=== PATIENT | female | born 1995 | race Caucasian/White ===

== ENCOUNTER 2017-05-23 10:39 | Emergency (ER) | payer MEDICAID, SELFPAY ==
[2017-05-23] MEDS ORDERED: Lidocaine 1% w/Epinephrine 1:100K 20 ML VIAL ONE (11:52)
== END 2017-05-23 12:26 | disposition home or self-care (01) ==
LOC: ERS 10:39
DX: L02.415 Cutaneous abscess of right lower limb (principal); Z79.899 Other long term (current) drug therapy
CPT/HCPCS: 10060; J2001

== ENCOUNTER 2018-03-13 21:13 | Emergency (ER) | payer OTHER | END 2018-03-13 21:47 | disposition home or self-care (01) | LOC: ERS 21:13 | DX: O99.511 Diseases of the respiratory system complicating pregnancy, first trimester (principal); J20.9 Acute bronchitis, unspecified; O99.341 Other mental disorders complicating pregnancy, first trimester; F41.9 Anxiety disorder, unspecified; F32.9 Major depressive disorder, single episode, unspecified; Z3A.12 12 weeks gestation of pregnancy | CPT/HCPCS: 87081; 87430; 99283 ==

== ENCOUNTER 2018-05-15 14:39 | Emergency (ER) | payer OTHER ==
[2018-05-15] MEDS ORDERED: Acetaminophen 500 MG TAB ONE (15:49)
== END 2018-05-15 16:02 | disposition home or self-care (01) ==
LOC: ERS 14:39
DX: O99.512 Diseases of the respiratory system complicating pregnancy, second trimester (principal); J11.1 Influenza due to unidentified influenza virus with other respiratory manifestations; O99.332 Smoking (tobacco) complicating pregnancy, second trimester; F41.9 Anxiety disorder, unspecified; F32.9 Major depressive disorder, single episode, unspecified; Z3A.19 19 weeks gestation of pregnancy
CPT/HCPCS: 87804; 99283

== ENCOUNTER 2018-05-24 14:31 | Outpatient (CLI) | payer OTHER ==
--- NOTE | 2018-05-24 15:55 | ULT ---
OBSTETRIC SONOGRAM 05/24/18 HISTORY: evaluation. Size and dates. FINDINGS: Multiple transabdominal sonographic views of the gravid uterus shows a single intrauterine gestation in cephalic presentation. Cervical is closed and 3.2 cm. Grade 0 placenta is anterior. Amniotic fluid is within normal limits. No gross intracranial abnormalities are apparent. Four chamber heart shows motion at 150 beats per minute. Three vessel cord shows a normal insertion. spine and kidneys a re intact as visualized. Measurements are as follows: Biparietal diameter 21 weeks, 2 days Head circumference 21 weeks, 0 days Abdominal circumference 20 weeks, 2 days Femur length 21 weeks, 0 days Estimated date of delivery based on today's sonogram 10/06/2018. Hadlock 23 percentile. IMPRESSION: Single viable intrauterine gestation with estimated gestational age based on today's sonogram of 20 w eeks, 5 days. POS: [facility]
== END 2018-05-24 14:32 | disposition home or self-care (01) ==
LOC: ULT 14:31
PROVIDERS: ATTEND Family Medicine
DX: Z34.92 Encounter for supervision of normal pregnancy, unspecified, second trimester (principal); Z3A.20 20 weeks gestation of pregnancy
CPT/HCPCS: 76805

== ENCOUNTER 2018-08-27 11:38 | Day surgery (SDC) | payer OTHER ==
[2018-08-27 12:28] VITALS: BMI 23.6
[2018-08-27 13:33] LABS: Bilirubin Negative (Negative); Blood, Urine Negative (Negative); Clarity CLEAR (Clear); Glucose, Urine (Dipstick) Negative (Negative); Leukocyte Moderate (Negative); Nitrite Negative (Negative); Protein, Urine (Dipstick) Negative (Neg-Trace); Specific Gravity, Urine 1.023 (1.002-1.036)
[2018-08-27 13:38] LABS: Bacteria/HPF Rare-Few HPF (None Seen); Hyaline Casts/LPF 7-10 HYALINE CAST LPF (0-3 Hyaline); Pathc Cast-AUWi Flag 1.49 (0-2.49); RBC/HPF 0-3 HPF (0-3); WBC/HPF 21-50 HPF (0-3)
[2018-08-27 15:17] LABS: Bilirubin Negative (Negative); Blood, Urine Negative (Negative); Clarity CLEAR (Clear); Glucose, Urine (Dipstick) Negative (Negative); Leukocyte Trace (Negative); Nitrite Negative (Negative); Protein, Urine (Dipstick) Negative (Neg-Trace); Specific Gravity, Urine 1.017 (1.002-1.036); pH, Urine 6.5 (5.0-9.0)
[2018-08-27 15:19] LABS: Bacteria/HPF 1+ HPF (None Seen); Hyaline Casts/LPF 0-3 HYALINE CAST LPF (0-3 Hyaline); Pathc Cast-AUWi Flag 0.27 (0-2.49); RBC/HPF 0-3 HPF (0-3); WBC/HPF 0-3 HPF (0-3)
[2018-08-27 15:30] LABS: Renal Epithelial None Seen HPF (0-3); Transitional Epithelial NONE SEEN HPF (0-3)
--- NOTE | 2018-08-30 12:22 | SS ---
DATE OF ADMISSION: 08/27/2018 DATE OF DISCHARGE: 08/27/2018 HISTORY OF PRESENT ILLNESS: The patient is a 23-year-old G2, P1 female with an intrauterine at 34 weeks and 6 days, who is presenting to Labor and Delivery after sudden onset of pelvic and back pain that she said began after having a bowel movement around 6:00 p.m. The patient denies uterine contractions or vaginal bleeding. She does report frequency of urination since this morning. The patient denies any fever, headache, chest pain, shortness of breath, nausea, vomiting, diarrhea, hip problems, knee problems, muscle weakness. The patient reports the pain as sharp. She reports it is worse with activity and movement such as getting out of bed and getting out of car and lifting. PAST MEDICAL HISTORY: Deaf in the left ear, anxiety, and depression. PAST SURGICAL HISTORY: She has had a LEEP procedure in 2018. ALLERGIES: LATEX. MEDICATIONS: vitamins. OB LABS: RPR is nonreactive. Chlamydia not detected. Hepatitis B surface antigen nonreactive. HIV nonreactive in the third trimester. She is rubella immune. Gonorrhea not detected. One-hour Glucola is 131. REVIEW OF SYSTEMS: Per HPI. PHYSICAL EXAMINATION: VITAL SIGNS: Blood pressure 110/74, heart rate of 98, respiratory rate of 20, saturating 96% to 97% on room air, temperature 98.9. GENERAL: She appears to be in no acute distress. She is alert, oriented, cooperative, and pleasant to interact with. HEAD: Normocephalic, atraumatic. LUNGS: Clear to auscultation bilaterally. HEART: Has regular rate and rhythm. ABDOMEN: Gravid, soft. She does have some tenderness to palpation with deviation of the uterus. She has some mild SI joint tenderness on either side to palpation. No CVA tenderness. EXTREMITIES: Nontender, nonedematous. GENITOURINARY: Cervical exam per nursing staff, she is 1, 50, and -3 station. LABORATORY DATA: heart tracing baseline is in the 140s with moderate long-term variability. Positive accelerations. No decelerations. The tocometer showing some irritability. Leukocyte esterase is trace, 1+ bacteria, squamous 4 to 6 on a clean-catch, and also on a cath UA. ASSESSMENT AND PLAN: The patient is a 23-year-old with an intrauterine at 34 weeks and 6 days, who presented with acute onset of sharp abdominal pain after straining to have bowel movement. These pains are most consistent with musculoskeletal pain of . In an attempt to evaluate her urine, we have sent 2 specimens, both have been somewhat contaminated with squamous cells. However, there has been evidence of urinary tract infection with bacteria present and leukocyte esterase. We have called in a prescription of Macrobid for her and will be culturing her urine. The patient had instructions to follow up with her primary OB Dr. Mike Cervantes as scheduled. She has been given labor precautions. Job ID: [id number]
== END 2018-08-27 15:40 | disposition home or self-care (01) ==
LOC: L&D/OP 11:38
PROVIDERS: ATTEND Family Medicine
DX: O99.89 Other specified diseases and conditions complicating pregnancy, childbirth and the puerperium (principal); R10.2 Pelvic and perineal pain; M54.5 Low back pain; H91.8X2 Other specified hearing loss, left ear; O99.343 Other mental disorders complicating pregnancy, third trimester; F41.9 Anxiety disorder, unspecified; F32.9 Major depressive disorder, single episode, unspecified; Z3A.34 34 weeks gestation of pregnancy; Z91.040 Latex allergy status
CPT/HCPCS: 51701; 81001; 99283

== ENCOUNTER 2018-09-17 03:49 | Inpatient (IN) | payer OTHER ==
[2018-09-17 04:20] VITALS: BMI 23.8
--- NOTE | 2018-09-17 05:00 | PDOC.LDHP ---
Labor and Delivery H&P Allergies/Adverse Reactions: Allergies Allergy/AdvReac Type Severity Reaction Status Date / Time Latex, Natural Rubber Allergy Severe Verified 09/17/18 04:15 - Plan -: PCP: Clover Cervantes HPI: This is a 23 yo at 37.5 wks presenting for labor rule out. She states she had intercourse last night and had back contractions which started after that. She states that they were consistently every 2-3 minutes. Now they have spaced out and she cannot give a frequency. She denies bleeding or discharge. Feels baby moving often. Denies FALCON, visual changes, SOB, or swelling. History: OB hx: at term PMH: neg PSH: neg Meds: PNV Soc Hx: denies smoking, alcohol, drugs Fam Hx: denies downs, congenital defects All: Tamiflu REVIEW OF SYSTEMS: Gen: no fever, chills, or sweats Neuro: no numbness/tingling, no weakness, denies headache Eyes: no visual changes ENT: no hearing changes, no sore throat, no runny nose Resp: no cough, no SOB, no wheeze Card: denies chest pain, no palpitations GI: no N/V/D, no abdominal pain : no dysuria, no hematuria MSK: no myalgias, no joint pain/stiffness Heme: no easy bruising/bleeding Skin: no rash, no erythema PHYSICAL EXAMINATION: General: NAD, alert and oriented x3 HEENT: PERRLA, EOMI, normal sclera, oropharynx without erythema or exudate Neck: Supple. Full ROM. Heart/Cardiovascular System: RRR, Cap refill < 3 seconds, no rub, no murmur Lungs/Respiratory System: clear to auscultation bilaterally. No increased work of breathing. Room air. Abdomen/Gastro-Intestinal System: no abdominal tenderness, normal bowel sounds, Gravid Extremities: Warm extremities. No cyanosis or edema. Neuro: No gross deficits appreciated. CN 2-12 grossly intact Psychiatry: Awake, Alert and cooperative with exam Skin: No lesions, rashes, or ulcers Musculoskeletal: Full ROM A/P: This is a 23 yo at 37.5 wks presenting for labor rule out # Term in labor - /-3 - /-1 - cxns q4-5 min, accels, no decels - will admit to monitor progress - reaching out to PCP to assist with obtaining records Addendum - Attending - Attending Attestation Date/Time: 09/19/18 0701 I personally evaluated the patient and discussed the management with Dr. Guzman I agree with the History, Examination, Assessment and Plan documented above with any addition or exceptions noted below. Pt admitted for labor. Dr Cervantes will be managing
[2018-09-17] MEDS ORDERED: Promethazine HCl 25 MG/ML VIAL IM PRN ×2 (07:53→11:51)
[2018-09-17] MEDS ORDERED: Ondansetron PF 4 MG/2 ML Vial IVP PRN ×4 (07:53→18:43)
[2018-09-17] MEDS ORDERED: NS / Oxytocin 40 units/1000ml 1,000 ML IV PRN (07:53)
[2018-09-17] MEDS ORDERED: Lidocaine 1% (PF) 30 ML VIAL SC PRN (07:53)
[2018-09-17] MEDS: Lactated Ringer's 1,000 ML IV SCH ×3 (07:55→13:41)
[2018-09-17 08:26] LABS: Hemoglobin 11.7 g/dL (12.0-16.0); Mean Corpuscular Hemoglobin 30.3 pg (27.0-31.0); Mean Corpuscular Volume 86.6 fL (78.0-98.0); Mean Platelet Volume 8.3 fL (7.4-10.4); Platelet Count 242 thou/uL (130-400); Red Blood Cell (RBC) Count 3.86 mill/uL (4.20-5.40); White Blood Cell (WBC) Count 8.6 thou/uL (4.8-10.8)
[2018-09-17] MEDS ORDERED: Fentanyl 4 mcg/Bup 0.1% Cadd 100 ML ONE ×2 (08:39→15:24)
[2018-09-17 09:08] LABS: Syphilis Antibody Nonreactive (Nonreactive); Syphilis Antibody Index 0.04 S/CO (<1.00 Non-Reactive)
[2018-09-17 09:09] LABS: HBSAg Index 0.28 S/CO (0-0.99); Hep B Surf Ag Non-Reactive S/CO (NonReactive)
[2018-09-17] MEDS ORDERED: Bupivacaine 0.25% HCL 30 ML VIAL ONE (11:11)
[2018-09-17] MEDS ORDERED: Naloxone HCl 0.4 mg/ml Vial IVP PRN ×2 (11:51)
[2018-09-17] MEDS ORDERED: Lactated Ringer's 500 ML IV PRN (11:51)
[2018-09-17] MEDS ORDERED: diphenhydrAMINE 50 MG/ML VIAL IVP PRN (11:51)
[2018-09-17] MEDS ORDERED: Acetaminophen 325 MG TAB PO PRN (11:51)
[2018-09-17] MEDS ORDERED: ePHEDrine/0.9% NaCl/PF SYRINGE 50 mg/10 ml SLOW IVP PRN (11:51)
[2018-09-17] MEDS ORDERED: NS w/ Oxytocin 10 units 500 ML ONE (11:57)
[2018-09-17] MEDS ORDERED: Fentanyl 4 mcg/Bupivacaine 0.1% Cassette 100 ML EPIDURAL SCH (12:00)
[2018-09-17] MEDS ORDERED: Communication Order-Pharmacy FS SCH (12:00)
[2018-09-17] MEDS ORDERED: NS w/ Oxytocin 10 units 500 ML IVPB SCH (13:00)
[2018-09-17] MEDS ORDERED: diphenhydrAMINE 25 MG CAP PO PRN ×2 (16:29→18:43)
[2018-09-17] MEDS ORDERED: Bisacodyl 10 MG SUPP PR PRN ×2 (16:29→18:43)
[2018-09-17] MEDS ORDERED: Lanolin Ointment 7 GM TUBE TOP PRN ×2 (16:29→18:43)
[2018-09-17] MEDS ORDERED: HYDROcodone/Acetaminophen 5/325 mg Tablet PO PRN (16:29)
[2018-09-17] MEDS ORDERED: Misoprostol 200 MCG TAB VAG PRN (16:29)
[2018-09-17] MEDS ORDERED: Milk Of Magnesia 30 ML UDCUP PO PRN ×2 (16:29→18:43)
[2018-09-17] MEDS ORDERED: Adacel (T-DAP) 0.5 ML SYRINGE IM ONE (16:29)
[2018-09-17] MEDS ORDERED: NS / Oxytocin 40 units/1000ml 1,000 ML IV SCH ×2 (16:30→18:43)
--- NOTE | 2018-09-17 16:36 | HP ---
HISTORY OF PRESENT ILLNESS: This is a 23-year-old white female, G4, P1, at 37 weeks and 5 days with EDC of 10/03/2018. The patient's course has been uncomplicated. She has been having contractions for the past few days. She presented this morning with regular contractions and was noted to be 4 cm dilated. She was therefore admitted. PAST MEDICAL HISTORY: Left ear congenital deafness. PAST SURGICAL HISTORY: In September 2017, spontaneous vaginal delivery x1, spontaneous AB x1, elective AB x1. FAMILY HISTORY: Mother with drug addiction. Maternal grandfather with lung cancer. Paternal grandfather with renal cell cancer. Paternal grandmother with hypertension and colon cancer. Siblings with asthma and seizure disorder. SOCIAL HISTORY: She is . She has one child. Lives with her and child. Graduated from high school. She does not smoke and does not drink. REVIEW OF SYSTEMS: As above. PHYSICAL EXAMINATION: VITAL SIGNS: Stable. Afebrile. HEART: Regular rate and rhythm. LUNGS: Clear. ABDOMEN: Gravid. heart tones reactive, category I. Cervix 4 cm from the morning check. EXTREMITIES: With no edema. LABORATORY DATA: One-hour GCT 131. Thyroid normal. HIV negative. Hepatitis B negative. RPR negative. Rubella immune. AB positive blood type. Paps are normal. GC and Chlamydia negative. HPV negative. ASSESSMENT: 1. Term . 2. Active labor. PLAN: 1. Routine L and D orders. 2. Epidural. 3. Plan to [facility]OM and continue to follow. Job ID: [id number]
[2018-09-17] MEDS ORDERED: Ferrous Sulfate 325 MG TAB PO SCH (17:00)
[2018-09-17] MEDS ORDERED: Methylergonovine 0.2 MG/ML VIAL IM PRN (18:43)
[2018-09-17] MEDS: HYDROcodone/Acetaminophen 5/325 mg Tablet PO PRN (19:14)
[2018-09-17] MEDS: Docusate Calcium (SURFAK) 240 MG CAP PO SCH (20:06)
[2018-09-17] MEDS: Ibuprofen 800 MG TAB PO PRN (20:06)
[2018-09-17] MEDS ORDERED: Docusate Calcium (SURFAK) 240 MG CAP PO SCH (21:00)
[2018-09-17] MEDS: Zolpidem Tartrate 5 MG TAB PO PRN (22:08)
[2018-09-18] MEDS: Ibuprofen 800 MG TAB PO PRN ×3 (07:49→21:15)
[2018-09-18] MEDS: Docusate Calcium (SURFAK) 240 MG CAP PO SCH ×2 (07:49→21:16)
[2018-09-18] MEDS: Prenatal Vitamin 1 TAB PO SCH (07:49)
[2018-09-18 08:55] LABS: Hemoglobin 10.6 g/dL (12.0-16.0); Mean Corpuscular HGB CONC 34.3 g/dL (32.0-36.0); Mean Corpuscular Hemoglobin 29.8 pg (27.0-31.0); Mean Corpuscular Volume 86.8 fL (78.0-98.0); Mean Platelet Volume 8.4 fL (7.4-10.4); Platelet Count 231 thou/uL (130-400); Red Blood Cell (RBC) Count 3.56 mill/uL (4.20-5.40); White Blood Cell (WBC) Count 8.3 thou/uL (4.8-10.8)
[2018-09-18] MEDS ORDERED: Prenatal Vitamin 1 TAB PO SCH (09:00)
[2018-09-18] MEDS: Ferrous Sulfate 325 MG TAB PO SCH ×2 (09:06→19:02)
[2018-09-18] MEDS: HYDROcodone/Acetaminophen 5/325 mg Tablet PO PRN (19:00)
[2018-09-18] MEDS: Zolpidem Tartrate 5 MG TAB PO PRN (21:16)
[2018-09-19] MEDS: HYDROcodone/Acetaminophen 5/325 mg Tablet PO PRN (06:48)
[2018-09-19 07:40] VITALS: BP 106/72; TEMP 98
[2018-09-19] MEDS: Ferrous Sulfate 325 MG TAB PO SCH (07:50)
--- NOTE | 2018-09-19 09:00 | OP ---
DATE OF PROCEDURE: 09/17/2018 PREOPERATIVE DIAGNOSIS: A 37-week 5-day intrauterine . POSTOPERATIVE DIAGNOSIS: A 37-week 5-day intrauterine . PROCEDURE PERFORMED: Spontaneous vaginal delivery with small bilateral labial lacerations, 3 cm. ANESTHESIA: Epidural. DESCRIPTION OF PROCEDURE: This 23-year-old white female, G4, P1, taken to the delivery complete and pushing. Prepped and draped sterilely. Delivered a baby boy with Apgars of 7 at 1 minute and 7 at 5 minutes. Baby did breathe and cry vigorously upon delivery. Delivered the placenta, 3-vessel intact. Repaired small bilateral labial lacerations with 3-0 chromic. Midline was intact. Estimated blood loss was 150 mL. Mother and baby did well. Job ID: [id number]
[2018-09-19] MEDS: Prenatal Vitamin 1 TAB PO SCH (09:28)
[2018-09-19] MEDS: Docusate Calcium (SURFAK) 240 MG CAP PO SCH (09:28)
[2018-09-19] MEDS: Ibuprofen 800 MG TAB PO PRN (10:19)
== END 2018-09-19 13:40 | disposition home or self-care (01) | DRG 807 ==
LOC: L&D/OP 03:49 → L&D 08:03 → 3SW 18:35
PROVIDERS: ADMIT Obstetrics & Gynecology; ATTEND Family Medicine
PROC: 10E0XZZ Delivery of Products of Conception, External Approach (ICD-10-PCS; principal; 2018-09-17)
PROC: 0HQ9XZZ Repair Perineum Skin, External Approach (ICD-10-PCS; 2018-09-17)
DX: O70.0 First degree perineal laceration during delivery (principal); Z37.0 Single live birth; Z3A.37 37 weeks gestation of pregnancy
CPT/HCPCS: 36415; 51702; 85027; 86780; 86850; 86900; 86901; 87340; 90715; 99285; J2210; J2405; J2590; S0020

== ENCOUNTER 2020-03-10 19:47 | Inpatient (IN) | payer OTHER ==
[2020-03-10] MEDS ORDERED: hydrALAZINE 20 MG/ML VIAL SLOW IVP PRN (20:45)
[2020-03-10] MEDS ORDERED: Lactated Ringer's 1,000 ML IV SCH (21:00)
[2020-03-10] MEDS ORDERED: Morphine 4 MG/ML VIAL IM SCH (21:00)
[2020-03-10] MEDS ORDERED: Morphine 2 MG/ML VIAL SLOW IVP SCH (21:00)
[2020-03-10] MEDS ORDERED: Ondansetron PF 4 MG/2 ML Vial IVP SCH (21:00)
[2020-03-10] MEDS ORDERED: Morphine 4 MG/ML VIAL SLOW IVP SCH (21:00)
[2020-03-10] MEDS: Dextrose 5%-Lactated Ringers 1,000 ML IV SCH (21:37)
[2020-03-10 22:17] VITALS: BMI 23.2
[2020-03-10] MEDS ORDERED: Zolpidem Tartrate 5 MG TAB PO PRN (23:04)
[2020-03-11] MEDS: Butorphanol Tartrate 1 MG/ML VIAL SLOW IVP PRN ×2 (01:05→07:38)
[2020-03-11 07:55] LABS: SARS-CoV-2 MS2 Positive; SARS-CoV-2 N Gene Negative; SARS-CoV-2 S Gene Negative; SARS-CoV-2 by NAA Not Detected (NotDetected); SARS-CoV-2 orf1ab Negative
--- NOTE | 2020-03-11 08:10 | HP ---
PRIMARY OB: Dr. Mike Falcon. CHIEF COMPLAINT: Abdominal pains. HISTORY OF PRESENT ILLNESS: The patient is a 24-year-old, G4, P2 female with an intrauterine at 36 weeks and a day, presenting to Labor and Delivery with complaints of abdominal pains that she reports have been occurring since about 3:00 yesterday afternoon. The patient reports that the pains have become painful and is requesting pain medication. She denies vaginal bleeding or leakage of fluid or urinary urgency or frequency. She denies any history of deliveries with her other babies. She does report that she was seen last week by Dr. Falcon and was 2 cm dilated at that time. The patient denies fever, cough, headache, chest pain, shortness of breath, nausea, vomiting, diarrhea, constipation, hip problems, knee problems, or muscle weakness. She denies any new rashes, vaginal bleeding, leakage of fluid, urinary urgency or frequency. PAST MEDICAL HISTORY: Significant for anxiety and depression. PAST SURGICAL HISTORY: She has had a LEEP procedure. SOCIAL HISTORY: Denies drug, alcohol, or tobacco use. ALLERGIES: TAMIFLU. MEDICATIONS: 1. Zoloft 50 mg. 2. vitamins. OB LABS: Blood type is AB positive, antibody screen is negative. VDRL is nonreactive. Hepatitis B surface antigen is nonreactive. HIV is nonreactive. She is rubella immune. REVIEW OF SYSTEMS: Per HPI. PHYSICAL EXAMINATION: VITAL SIGNS: On arrival, blood pressure is 107/74, heart rate of 120, respiratory rate of 18, temperature 99.2. Subsequent blood pressures of all have been 117/72, heart rate of 94, respiratory rate of 16, temperature 98.3; and blood pressure 99/62, heart rate of 93, respiratory rate of 16, temperature 98.1. GENERAL: She appears to be with some discomfort when having contractions. She is otherwise alert and oriented, cooperative, and pleasant to interact with. HEAD: Normocephalic and atraumatic. LUNGS: Clear to auscultation bilaterally. HEART: Has regular rate and rhythm. ABDOMEN: Gravid and soft, nontender in between contractions. She has no CVA tenderness. EXTREMITIES: Nontender and nonedematous. CERVICAL: Exam per nursing staff is 3, 75, and -2 station. Repeat exam 2 hours later is 4, 75, and -2 station. heart tracing shows the fetus with a baseline in the 150s with moderate long-term variability, positive 15 x 15 accelerations, no decelerations. Tocometer showing contractions about every 2 minutes. ASSESSMENT AND PLAN: The patient is a 24-year-old female with an intrauterine at 36 weeks and 2 days, here for evaluation of labor. Given her status and no medical indication for augmentation of labor, the patient has been admitted to observation for evaluation of transition to active labor. The patient has received a total of 6 units of morphine and Zofran with some relief. She has been given Ambien to help her sleep tonight. Of note, this morning, day after admission, the patient remains unchanged at 4, 75, -1 station. However, she is contractions still about every 4 to 6 minutes and is requesting pain medication. I have updated her primary provider, Dr. Falcon as to the patient's status. She will remain in observation and he will be taking over management. Job ID: [id number]
[2020-03-11] MEDS ORDERED: hydrALAZINE 20 MG/ML VIAL SLOW IVP PRN ×2 (08:59→18:44)
[2020-03-11] MEDS ORDERED: Lidocaine 1% (PF) 30 ML VIAL SC PRN (08:59)
[2020-03-11] MEDS ORDERED: Ondansetron PF 4 MG/2 ML Vial IVP PRN ×3 (08:59→18:44)
[2020-03-11] MEDS ORDERED: Carboprost 250 MCG/ML AMP IM PRN (08:59)
[2020-03-11] MEDS ORDERED: Butorphanol Tartrate 1 MG/ML VIAL SLOW IVP PRN (08:59)
[2020-03-11] MEDS ORDERED: Promethazine HCl 25 MG/ML VIAL IM PRN ×3 (08:59→18:44)
[2020-03-11] MEDS ORDERED: NS / Oxytocin 40 units/1000ml 1,000 ML IV PRN (08:59)
[2020-03-11] MEDS ORDERED: Ibuprofen 800 MG TAB PO PRN (08:59)
[2020-03-11] MEDS ORDERED: Diphenoxylate HCl/Atropine Tablet PO PRN ×2 (08:59)
[2020-03-11] MEDS ORDERED: Misoprostol 200 MCG TAB PR PRN (08:59)
[2020-03-11] MEDS ORDERED: Lactated Ringer's 1,000 ML IV SCH (09:00)
[2020-03-11] MEDS ORDERED: NS w/ Oxytocin 10 units 500 ML IV SCH ×2 (09:00)
[2020-03-11] MEDS ORDERED: Bupivacaine 0.5% 20 ML, fentaNYL Citrate/PF 400 MCG in Sodium Chloride 0.9% 72 ML EPIDURAL SCH (09:15)
[2020-03-11] MEDS ORDERED: DISCONTINUE ALL PREVIOUS NARCOTICS FS SCH (09:15)
[2020-03-11 10:10] LABS: Hemoglobin 9.6 g/dL (12.0-16.0); Mean Corpuscular HGB CONC 32.9 g/dL (32.0-36.0); Mean Corpuscular Hemoglobin 25.4 pg (27.0-31.0); Mean Corpuscular Volume 77.1 fL (78.0-98.0); Mean Platelet Volume 8.6 fL (7.4-10.4); Platelet Count 258 thou/uL (130-400); RBC Distribution Width 14.4 % (11.5-14.5); Red Blood Cell (RBC) Count 3.79 mill/uL (4.20-5.40); White Blood Cell (WBC) Count 7.7 thou/uL (4.8-10.8)
[2020-03-11 10:45] LABS: HBSAg Index 0.23 S/CO (0-0.99); Hep B Surf Ag Non-Reactive S/CO (NonReactive); Syphilis Antibody Nonreactive (Nonreactive); Syphilis Antibody Index 0.03 S/CO (<1.00 Non-Reactive)
[2020-03-11] MEDS ORDERED: diphenhydrAMINE 50 MG/ML VIAL IVP PRN (10:54)
[2020-03-11] MEDS ORDERED: Acetaminophen 325 MG TAB PO PRN (10:54)
[2020-03-11] MEDS ORDERED: Naloxone HCl 0.4 mg/ml Vial IVP PRN ×2 (10:54)
[2020-03-11] MEDS ORDERED: Lactated Ringer's 500 ML IV PRN (10:54)
[2020-03-11] MEDS ORDERED: ePHEDrine 50 MG/ML VIAL SLOW IVP PRN (10:54)
[2020-03-11] MEDS ORDERED: Communication Order-Pharmacy FS SCH (11:00)
[2020-03-11] MEDS ORDERED: Fentanyl 4 mcg/Bupivacaine 0.1% Cassette 100 ML EPIDURAL SCH (11:00)
[2020-03-11] MEDS ORDERED: Misoprostol 200 MCG TAB VAG PRN (18:44)
[2020-03-11] MEDS ORDERED: Bisacodyl 10 MG SUPP PR PRN (18:44)
[2020-03-11] MEDS ORDERED: Lanolin Ointment 7 GM TUBE TOP PRN (18:44)
[2020-03-11] MEDS ORDERED: Benzocaine-Menthol 82.5 ML CAN TOP PRN (18:44)
[2020-03-11] MEDS ORDERED: Methylergonovine 0.2 MG/ML VIAL IM PRN (18:44)
[2020-03-11] MEDS ORDERED: Milk Of Magnesia 30 ML UDCUP PO PRN (18:44)
[2020-03-11] MEDS: Dextrose 5%-Lactated Ringers 1,000 ML IV SCH (18:53)
[2020-03-11] MEDS ORDERED: NS / Oxytocin 40 units/1000ml 1,000 ML IV SCH (19:00)
[2020-03-11] MEDS: Ibuprofen 800 MG TAB PO SCH (19:42)
[2020-03-11] MEDS ORDERED: traMADol HCl 50 MG TAB PO PRN (21:34)
[2020-03-11] MEDS: Docusate Calcium (SURFAK) 240 MG CAP PO SCH (21:44)
[2020-03-11] MEDS: Zolpidem Tartrate 5 MG TAB PO PRN (21:44)
[2020-03-11] MEDS: traMADol HCl 50 MG TAB PO PRN (21:44)
[2020-03-12] MEDS: Ibuprofen 800 MG TAB PO SCH ×3 (04:08→20:13)
[2020-03-12] MEDS: traMADol HCl 50 MG TAB PO PRN (06:55)
[2020-03-12 07:04] LABS: Hemoglobin 9.8 g/dL (12.0-16.0); Mean Corpuscular HGB CONC 31.8 g/dL (32.0-36.0); Mean Corpuscular Hemoglobin 24.7 pg (27.0-31.0); Mean Corpuscular Volume 77.6 fL (78.0-98.0); Mean Platelet Volume 8.6 fL (7.4-10.4); Platelet Count 267 thou/uL (130-400); RBC Distribution Width 14.7 % (11.5-14.5); Red Blood Cell (RBC) Count 3.98 mill/uL (4.20-5.40); White Blood Cell (WBC) Count 9.4 thou/uL (4.8-10.8)
[2020-03-12] MEDS ORDERED: Measles/Mumps/Rubella 10 MCG/0.5 ML VIAL SC ONE (09:00)
[2020-03-12] MEDS ORDERED: Varicella virus, LIVE 0.5 ML VIAL SC ONE (09:00)
[2020-03-12] MEDS ORDERED: Adacel (T-DAP) 0.5 ML SYRINGE IM ONE (09:00)
[2020-03-12] MEDS: Prenatal Vitamin 1 TAB PO SCH (09:25)
[2020-03-12] MEDS: Docusate Calcium (SURFAK) 240 MG CAP PO SCH ×2 (09:26→20:13)
[2020-03-12] MEDS: Ferrous Sulfate 325 MG TAB PO SCH ×2 (09:26→16:54)
[2020-03-12] MEDS ORDERED: Ondansetron ODT 4 MG TAB PO PRN (12:20)
[2020-03-12] MEDS: HYDROcodone/Acetaminophen 5/325 mg Tablet PO PRN ×2 (15:43→20:12)
[2020-03-12] MEDS: Zolpidem Tartrate 5 MG TAB PO PRN (21:25)
--- NOTE | 2020-03-13 00:47 | PDOC.PP ---
Post Progress Note Post Day #: 1 PO intake tolerated: yes Flatus: yes Ambulation: yes Vital Signs (12 hours) Temp Pulse Resp BP Pulse Ox 03/12/20 19:16 97.9 F 79 12 109/67 97 Weight Weight 127 lb - Physical Examination General: NAD Cardiovascular: no m/r/g, RRR Respiratory: clear to auscultation bilaterally Abdominal: + bowel sounds, lochia, no distention Extremities: negative homans (B) (DC tomorrow planned) Neurological: no gross focal deficits Psychiatric: A&Ox3, normal affect Result Diagrams: 03/12/20 06:47 Additional Labs: Post Labs Hep Bs Antigen Non-Reactive S/CO (NonReactive) 03/11/20 09:56 Blood Type AB POSITIVE 03/11/20 09:56
--- NOTE | 2020-03-13 00:49 | PDOC.LDHP ---
Labor and Delivery H&P Chief complaint: contractions HPI: 24 y/o at 36 and 3/7 weeks presents in PTL. GBS neg. Current gestational age (weeks): 36 Due date: 03/26/20 Grav: 2 Para: 0 Current complications: none Abnormal US findings: No Current medications: pre- vitamins Allergies/Adverse Reactions: Allergies Allergy/AdvReac Type Severity Reaction Status Date / Time Latex, Natural Rubber Allergy Severe Verified 09/17/18 04:15 oseltamivir [From Tamiflu] Allergy Verified 03/12/20 14:39 - Physical Exam Vital signs reviewed and normal: yes General: NAD, resting Heart: RRR Lungs: CTAB Abdomen: gravid Extremeties: no edema FHT: category 1 - Assessment L&D Assessment: labor - Plan Plan: admit to L&D, observation in L&D
[2020-03-13] MEDS: HYDROcodone/Acetaminophen 5/325 mg Tablet PO PRN ×4 (02:15→17:23)
--- NOTE | 2020-03-13 02:39 | DN ---
DATE OF PROCEDURE: 03/11/2020 TIME OF SERVICE: 1447 Central Standard Time. PREOPERATIVE DIAGNOSIS: labor at 36 weeks and 2 days with rapid progression. POSTOPERATIVE DIAGNOSIS: labor at 36 weeks and 2 days with rapid progression. PROCEDURE: Spontaneous vaginal delivery over an intact perineum. FINDINGS: Viable female infant, 2709 g or 6 pounds 0 ounces, Apgars 8 and 9. QUANTITATIVE BLOOD LOSS: 150. COMPLICATIONS: None. PROCEDURE IN DETAIL: The patient presented to [facility] where she was admitted to the labor and delivery service. The patient underwent a normal and uneventful labor with normal cervical dilatation until she was found to be completely dilated. She was then allowed to push and was able to bring the baby down and delivered the baby in a vertex presentation without difficulties. Once the head delivered in occiput anterior position, the shoulders followed spontaneously along with the rest of the baby's body. Once out the baby's mouth and nose were bulb suctioned. The cord was clamped and cut and baby was handed to waiting attendants. Cord blood was collected. Gentle fundal massage was performed and the placenta delivered intact without problems. Hemostasis was assured. Quantitative blood loss was calculated. Inspection of the cervix, vaginal vault, and perineum did not reveal any lacerations needing suturing. Once again, hemostasis was within normal limits and the patient was allowed to recover in the labor and delivery room. Baby went to nursery. Job ID: [id number]
[2020-03-13] MEDS: Ibuprofen 800 MG TAB PO SCH ×2 (05:12→13:26)
[2020-03-13 08:20] VITALS: BP 90/50; TEMP 98
[2020-03-13] MEDS: Prenatal Vitamin 1 TAB PO SCH (09:10)
[2020-03-13] MEDS: Docusate Calcium (SURFAK) 240 MG CAP PO SCH (09:12)
[2020-03-13] MEDS: Ferrous Sulfate 325 MG TAB PO SCH ×2 (09:13→16:59)
== END 2020-03-13 18:20 | disposition home or self-care (01) | DRG 807 ==
LOC: L&D/OP 19:47 → L&D 23:03 → OBSVTOIN 03-11 08:59 → 3SW 03-11 18:04
PROVIDERS: ADMIT Obstetrics & Gynecology; ATTEND Obstetrics & Gynecology
PROC: 10E0XZZ Delivery of Products of Conception, External Approach (ICD-10-PCS; principal; 2020-03-12)
DX: O60.14X0 Preterm labor third trimester with preterm delivery third trimester, not applicable or unspecified (principal); Z37.0 Single live birth; O99.344 Other mental disorders complicating childbirth; Z20.828 Contact with and (suspected) exposure to other viral communicable diseases; F41.9 Anxiety disorder, unspecified; Z3A.36 36 weeks gestation of pregnancy; F32.9 Major depressive disorder, single episode, unspecified
CPT/HCPCS: 36415; 51702; 85027; 86780; 86850; 86900; 86901; 87340; 87635; 96372; 96374; 96375; 99285; G0378; J0595; J2270; J2405; J3010; J3490; Q0162; U0003

== ENCOUNTER 2022-06-17 23:21 | Emergency (ER) | payer MEDICAID, OTHER ==
[2022-06-17 23:56] LABS: #Eosinphils 0.1 thou/uL (0.0-0.7); #Lymphocytes 1.5 thou/uL (1.20-3.40); #Monocytes 0.3 thou/uL (0.11-0.59); #Neutrophils 3.1 thou/uL (1.40-6.50); %Basophils 0.9 % (0.0-1.0); %Eosinophils 1.6 % (0.0-10.0); %Lymphocytes 30.4 % (21.0-51.0); %Monocytes 5.2 % (0.0-10.0); %Neutrophils 61.9 % (42.0-75.0); Hemoglobin 12.4 g/dL (12.0-16.0); Mean Corpuscular Hemoglobin 31.1 pg (27.0-31.0); Mean Corpuscular Volume 91.6 fl (78.0-98.0); Mean Platelet Volume 7.5 fL (7.4-10.4); Platelet Count 223 10x3/uL (130-400); Red Blood Cell (RBC) Count 3.97 mill/uL (4.20-5.40)
[2022-06-18 00:11] LABS: BHCG - Serum Negative (NEGATIVE); Pregs Control Background? CLEAR/WHITE (CLR/WHITE); Pregs Control Bar Appear? YES (CONTROL BAR)
[2022-06-18 00:15] LABS: ALT (SGPT) 18 U/L (8-55); AST (SGOT) 25 U/L (5-34); Albumin 3.7 g/dL (3.5-5.0); Alkaline Phosphatase 42 U/L (40-110); Anion Gap 13 mmol/L (10-20); BUN (Urea Nitrogen) 10 mg/dL (7.0-18.7); Bilirubin, Total 0.4 mg/dL (0.2-1.2); Calc. Creatinine Clearance 0 mL/min (70-130); Calcium 8.6 mg/dL (7.8-10.44); Carbon Dioxide 23 mmol/L (22-29); Chloride 102 mmol/L (98-107); Estimated GFR 125; Globulin 2.4 g/dL (2.4-3.5); Glucose 82 mg/dL (70-105); Potassium 3.3 mmol/L (3.5-5.1); Protein, Total 6.1 g/dL (6.0-8.3); Sodium 135 mmol/L (136-145)
[2022-06-18 00:16] LABS: Acetaminophen Less than 10.0 mcg/mL (10.0-30.0); Alcohol 11 mg/dL (Less than 10); Salicylate Less than 8.0 mg/dL (15.0-30.0)
[2022-06-18 00:50] LABS: Amphetamine Detected (NotDetected); Barbiturates Screen Not Detected (NotDetected); Benzodiazepine Screen Detected (NotDetected); Cocaine Metabolite Screen Not Detected (NotDetected); Methadone Not Detected (NotDetected); Methamphetamine Detected (NotDetected); Opiate Screen Not Detected (NotDetected); Oxycodone Screen Not Detected (NotDetected); Phencyclidine (PCP) Not Detected (NotDetected); THC/Cannabinoid Screen Not Detected (NotDetected); Tricyclic Screen Not Detected (NotDetected)
[2022-06-18 03:24] LABS: Acetaminophen Less than 10.0 mcg/mL (10.0-30.0); Alcohol Less than 10 mg/dL (Less than 10); Salicylate Less than 8.0 mg/dL (15.0-30.0)
== END 2022-06-18 05:16 | disposition home or self-care (01) ==
LOC: ERS 23:21
DX: T40.2X1A Poisoning by other opioids, accidental (unintentional), initial encounter (principal)
CPT/HCPCS: 36415; 80053; 80306; 80307; 84703; 85025; 93005

== ENCOUNTER 2024-12-03 05:37 | Emergency (ER) | payer SELFPAY ==
[2024-12-03 06:22] LABS: #Basophils 0.08 10x3/uL (0.0-0.2); #Eosinophils 0.04 10x3/uL (0.0-0.7); #Monocytes 0.50 10x3/uL (0.11-0.59); #Neutrophils 13.12 10x3/uL (1.40-6.50); %Basophils 0.5 % (0.0-1.0); %Eosinophils 0.3 % (0.0-10.0); %Lymphocytes 9.8 % (21.0-51.0); %Monocytes 3.3 % (0.0-10.0); %Neutrophils 85.4 % (42.0-75.0); Hematocrit 35.6 % (36.0-47.0); Hemoglobin 12.0 g/dL (12.0-16.0); Mean Corpuscular Hemoglobin 29.5 pg (27.0-31.0); Mean Corpuscular Volume 87.5 fL (78.0-98.0); Platelet Count 290 10x3/uL (130-400); Red Blood Cell (RBC) Count 4.07 mill/uL (4.20-5.40); White Blood Cell (WBC) Count 15.35 10x3/uL (4.8-10.8)
[2024-12-03 06:30] LABS: BHCG - Serum Negative (NEGATIVE); Pregs Control Background? CLEAR/WHITE (CLR/WHITE); Pregs Control Bar Appear? YES (CONTROL BAR)
[2024-12-03] MEDS ORDERED: Orphenadrine Citrate 60 MG/2 ML VIAL ONE (06:34)
[2024-12-03 06:37] LABS: ALT (SGPT) 35 U/L (Less than 34); AST (SGOT) 58 U/L (11-34); Albumin 4.0 g/dL (3.1-4.5); Alkaline Phosphatase 81 U/L (40-110); Anion Gap 16 mmol/L (10-20); BUN (Urea Nitrogen) 25 mg/dL (7.0-18.7); Bilirubin, Total 0.7 mg/dL (0.3-1.2); Calc. Creatinine Clearance 0 mL/min (70-130); Calcium 8.5 mg/dL (7.8-10.44); Carbon Dioxide 18 mmol/L (22-29); Chloride 108 mmol/L (98-107); Globulin 2.8 g/dL (2.4-3.5); Glucose 90 mg/dL (70-105); Potassium 3.6 mmol/L (3.5-5.1); Sodium 138 mmol/L (136-145)
[2024-12-03] MEDS ORDERED: Ketorolac Tromethamine 30 MG (1 mL) VIAL ONE (07:43)
[2024-12-03] MEDS ORDERED: Acetaminophen 325 MG TAB ONE (07:43)
[2024-12-03] MEDS ORDERED: Iopamidol 370 76% 100 ML VIAL ONE (11:45)
== END 2024-12-03 07:59 | disposition home or self-care (01) ==
LOC: ERS 05:37
DX: S06.0X0A Concussion without loss of consciousness, initial encounter (principal); S39.012A Strain of muscle, fascia and tendon of lower back, initial encounter; S16.1XXA Strain of muscle, fascia and tendon at neck level, initial encounter; R74.01 Elevation of levels of liver transaminase levels; F17.210 Nicotine dependence, cigarettes, uncomplicated; V49.50XA Passenger injured in collision with unspecified motor vehicles in traffic accident, initial encounter
CPT/HCPCS: 70450; 71260; 72125; 74177; 80053; 84703; 85025; 93005; 96374; 96375; J1885; J2270; J2360; Q9967